=== PATIENT | female | born 2000 | race American Indian/Alaskan Native ===

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

== ENCOUNTER 2019-07-31 14:28 | Emergency (ER) | payer BC ==
[2019-07-31 14:32] VITALS: BP 154/90
[2019-07-31] MEDS ORDERED: oxyCODONE /ACETAMINOPHEN 5-325MG TAB PO ONE (15:32)
--- NOTE | 2019-07-31 15:34 | Emergency Department Report ---
Chief Complaint: Abdominal Pain Stated Complaint: RT SIDE PAIN/THROAT PAIN/LEG PAIN Time Seen by Provider: 07/31/19 15:33 - HPI History of Present Illness: 19 y/o fem, smokes marijuana, not sure if c/o suprapubic pain walks with steady gait suprapubic pain labs ua pain meds ultrasound reassess Vital Signs 07/31/19 14:31 Temperature 98.9 F Pulse Rate 99 H Respiratory 16 Rate Blood Pressure 154/90 O2 Sat by Pulse 97 Oximetry - Exam Vital Signs: Vital Signs 07/31/19 14:31 Temperature 98.9 F Pulse Rate 99 H Respiratory 16 Rate Blood Pressure 154/90 O2 Sat by Pulse 97 Oximetry MSE screening note: Focused history and physical exam performed. Due to findings the following was ordered: ED Disposition for MSE Condition: Stable Instructions: Abdominal Pain (ED)
[2019-07-31 17:00] LABS: Bilirubin,Urine NEG (Negative); Blood,Urine NEG (Negative); Color,Urine Yellow (Yellow); Mucus,Urine 1+ /HPF; Urobilinogen,Urine < 2.0 mg/dL (<2.0); WBC,Urine < 1.0 /HPF (0.0-6.0)
[2019-07-31 17:07] LABS: Amphetamine Screen,Urine PRESUMPTIVE NEGATIVE; Benzodiazepines Screen,Urine PRESUMPTIVE NEGATIVE; Cocaine Screen,Urine PRESUMPTIVE NEGATIVE; Methadone Screen,Urine PRESUMPTIVE NEGATIVE; Opiate Screen,Urine PRESUMPTIVE NEGATIVE
[2019-07-31 17:29] LABS: Cannabinoid Screen,Urine PRESUMPTIVE POSITIVE
== END 2019-07-31 19:45 | disposition left against medical advice (07) ==
LOC: ED 14:28
DX: R10.2 Pelvic and perineal pain (principal); F12.10 Cannabis abuse, uncomplicated; Z79.899 Other long term (current) drug therapy
CPT/HCPCS: 80307; 81001; 99282; 99283